=== PATIENT | female | born 1930 | race Caucasian/White ===

== ENCOUNTER 2019-07-06 20:49 | Inpatient (IN) ==
[2019-07-06] MEDS ORDERED: SODIUM CHLORIDE 0.9% 1,000 ML IV STA ×2 (21:40→22:21)
[2019-07-06 21:49] LABS: Basophils # 0.1 10*3/uL (0.0-0.2); Basophils % 0.5 % (0.0-0.8); Hematocrit 43.2 VOL% (35.7-47.0); Immature Granulocytes % 1.4 %; Immature Granulocytes Absolute 0.37 #; Lymphocytes # 2.3 10*3/uL (1.4-4.0); Lymphocytes % 8.6 % (21.3-54.2); Mean Corpuscular HGB Conc 32.4 GM/DL (32-36); Mean Corpuscular Volume 89.3 FL (87-102); Mean Platelet Volume 9.2 FL (9.6-12.0); Monocytes % 5.7 % (1.7-12.7); Neutrophils % 83.8 % (38.7-73.9); Platelet Count 291 T/CUMM (130-400); Red Blood Count 4.84 MC/CUMM (3.8-5.5); Red Cell Distribution Width 13.6 % (9.3-17.3); White Blood Count 26.6 T/CUMM (4-12)
[2019-07-06 22:05] LABS: INR 1.1; PT Patient Result 11.5 SECS (9.6-12.2)
[2019-07-06 22:07] LABS: Alanine Aminotransferase 50 U/L (13-56); Albumin 3.2 G/DL (3.4-5.0); Alkaline Phosphatase 65 U/L (45-117); Aspartate Amino Transferase 21 U/L (0-37); Blood Urea Nitrogen 16 MG/DL (7-18); Calcium 9.1 MG/DL (8.5-10.1); Estimated Glom Filtration Rate 52 ML/MIN; Glucose 143 MG/DL (74-106); Osmolality,Calculated 288.8 MOS/KG (273-304); Total Protein 6.7 G/DL (6.4-8.3)
[2019-07-06 22:23] LABS: Band Neutrophils 1 % (0-10); Lymphocytes 11 % (20-55); Platelet Estimate Adequate; Segmented Neutrophils 84 % (50-85); Total Cells Counted 100
[2019-07-06] MEDS ORDERED: LEVOFLOXACIN INJ 500 MG in PREMIX 1 EACH IV STA (22:24)
[2019-07-06 23:06] LABS: Apearance,Urine CLEAR (Clear); Bilirubin,Urine Negative (Negative); Blood, Urine Negative (Negative); Glucose,Urine (UA) Negative (Negative); Hyaline Casts,Urine 12 /LPF (0-3); Ketones,Urine Negative (Negative); Mucus,Urine Occasional /LPF (Occasional); Nitrite,Urine Negative (Negative); Protein,Urine Negative; RBC,Urine 2 /HPF (0-4); Squamous Epithelial Cell,Urine Occasional /HPF (0-10); Urine Color Yellow (Yellow); Urine Specific Gravity 1.014 (1.001-1.035); Urine Urobilinogen < 2.0 EU/DL (0.2-1.0); WBC,Urine 28 /HPF (0-6)
[2019-07-06] MEDS ORDERED: ACETAMINOPHEN 325 MG TABLET PO PRN (23:51)
[2019-07-07] MEDS: PIPERACILLIN/TAZOBACTAM 3,375 MG in SODIUM CHLORIDE 0.9% 100 ML IV SCH ×2 (02:31→09:21)
[2019-07-07] MEDS: SODIUM CHLORIDE 0.9% 1,000 ML IV SCH ×3 (02:31→14:50)
[2019-07-07 07:12] LABS: Basophils # 0.1 10*3/uL (0.0-0.2); Basophils % 0.2 % (0.0-0.8); Eosinophils % 0.1 % (0.00-10.9); Hematocrit 36.4 VOL% (35.7-47.0); Hemoglobin 11.8 GM/DL (12.0-16.0); Immature Granulocytes % 0.6 %; Immature Granulocytes Absolute 0.15 #; Lymphocytes # 3.3 10*3/uL (1.4-4.0); Lymphocytes % 14.2 % (21.3-54.2); Mean Corpuscular HGB Conc 32.4 GM/DL (32-36); Mean Corpuscular Volume 90.5 FL (87-102); Monocytes % 6.2 % (1.7-12.7); Neutrophils % 78.7 % (38.7-73.9); Platelet Count 237 T/CUMM (130-400); Red Blood Count 4.02 MC/CUMM (3.8-5.5); White Blood Count 23.4 T/CUMM (4-12)
[2019-07-07 07:25] LABS: Calcium 8.4 MG/DL (8.5-10.1); Osmolality,Calculated 293.1 MOS/KG (273-304)
[2019-07-07 07:37] LABS: Band Neutrophils 12 % (0-10); Lymphocytes 18 % (20-55); Platelet Estimate Normal; Segmented Neutrophils 62 % (50-85); Total Cells Counted 100
[2019-07-07 07:39] LABS: Macrocytosis Slight
[2019-07-07] MEDS ORDERED: NON-FORMULARY MEDICATION (Tiotropium Bromide [Spiriva Respimat] 2 PUFFS) INH SCH (10:45)
[2019-07-07] MEDS ORDERED: NON-FORMULARY MEDICATION (Lactobacillus Combination No.4 [Probiotic] 3,000 mmu cells) PO SCH (10:45)
[2019-07-07] MEDS ORDERED: LEVALBUTEROL 0.63 MG/3 ML NEB RESP TX SCH (11:00)
[2019-07-07] MEDS: ALBUTEROL/IPRATROPIUM 3 ML NEB RESP TX SCH ×3 (11:05→20:04)
[2019-07-07] MEDS ORDERED: METOPROLOL SUCCINATE XL 25 MG TABLET PO SCH (11:30)
[2019-07-07] MEDS ORDERED: amLODIPine 5 MG TABLET PO SCH (11:30)
[2019-07-07] MEDS: APIXABAN 5 MG TABLET PO SCH ×2 (11:48→20:33)
[2019-07-07] MEDS: FLUTICASONE/SALMETEROL 500-50 DISKUS 14 DOSE INH SCH ×2 (11:49→20:37)
[2019-07-07] MEDS: MONTELUKAST 10 MG TABLET PO SCH ×2 (11:49→20:33)
[2019-07-07] MEDS: POTASSIUM CHLORIDE 10 MEQ TABLET PO SCH (11:49)
[2019-07-07] MEDS: LACTOBACILLUS RHAMNOSUS GG CAPSULE PO SCH (11:49)
[2019-07-07] MEDS: COLESEVELAM 625 MG TABLET PO SCH (11:49)
[2019-07-07] MEDS: OSELTAMIVIR 75 MG CAPSULE PO SCH ×2 (14:49→20:34)
[2019-07-07] MEDS ORDERED: FUROSEMIDE 20 MG TABLET PO SCH (16:00)
[2019-07-07] MEDS: EZETIMIBE 10 MG TABLET PO SCH (20:33)
[2019-07-07] MEDS: MIRTAZAPINE 15 MG TABLET PO SCH (20:34)
[2019-07-07] MEDS: SIMVASTATIN 20 MG TABLET PO SCH (20:34)
[2019-07-07] MEDS ORDERED: LEVOFLOXACIN INJ 750 MG in PREMIX 1 EACH IV SCH (21:00)
[2019-07-08 05:42] LABS: Basophils # 0.1 10*3/uL (0.0-0.2); Basophils % 0.3 % (0.0-0.8); Eosinophils # 0.1 10*3/uL (0.0-0.87); Eosinophils % 0.6 % (0.00-10.9); Hematocrit 37.4 VOL% (35.7-47.0); Hemoglobin 11.7 GM/DL (12.0-16.0); Immature Granulocytes % 0.8 %; Immature Granulocytes Absolute 0.14 #; Lymphocytes # 2.4 10*3/uL (1.4-4.0); Lymphocytes % 14.2 % (21.3-54.2); Mean Corpuscular HGB Conc 31.3 GM/DL (32-36); Mean Corpuscular Volume 91.4 FL (87-102); Mean Platelet Volume 9.8 FL (9.6-12.0); Monocytes % 5.9 % (1.7-12.7); Neutrophils % 78.2 % (38.7-73.9); Platelet Count 215 T/CUMM (130-400); Red Blood Count 4.09 MC/CUMM (3.8-5.5); Red Cell Distribution Width 14.3 % (9.3-17.3); White Blood Count 17.2 T/CUMM (4-12)
[2019-07-08] MEDS: PANTOPRAZOLE 40 MG TABLET PO SCH (05:48)
[2019-07-08 06:06] LABS: Calcium 8.4 MG/DL (8.5-10.1); Osmolality,Calculated 286.7 MOS/KG (273-304)
[2019-07-08] MEDS: ALBUTEROL/IPRATROPIUM 3 ML NEB RESP TX SCH ×4 (06:58→19:30)
[2019-07-08] MEDS: FLUTICASONE/SALMETEROL 500-50 DISKUS 14 DOSE INH SCH ×2 (10:35→20:18)
[2019-07-08] MEDS: OSELTAMIVIR 75 MG CAPSULE PO SCH ×2 (10:36→20:06)
[2019-07-08] MEDS: APIXABAN 5 MG TABLET PO SCH ×2 (10:36→20:07)
[2019-07-08] MEDS: LACTOBACILLUS RHAMNOSUS GG CAPSULE PO SCH (10:36)
[2019-07-08] MEDS: POTASSIUM CHLORIDE 10 MEQ TABLET PO SCH (10:36)
[2019-07-08] MEDS: MONTELUKAST 10 MG TABLET PO SCH ×2 (10:36→20:06)
[2019-07-08] MEDS: COLESEVELAM 625 MG TABLET PO SCH (10:41)
[2019-07-08] MEDS: SODIUM CHLORIDE 0.9% 1,000 ML IV SCH (11:05)
[2019-07-08] MEDS: PIPERACILLIN/TAZOBACTAM 3,375 MG in SODIUM CHLORIDE 0.9% 100 ML IV SCH ×2 (12:12→20:04)
[2019-07-08] MEDS ORDERED: TUBERCULIN SKIN TEST 0.1 ML SYRINGE INTRADERM ONE (15:00)
[2019-07-08] MEDS: MIRTAZAPINE 15 MG TABLET PO SCH (20:06)
[2019-07-08] MEDS: EZETIMIBE 10 MG TABLET PO SCH (20:06)
[2019-07-08] MEDS: SIMVASTATIN 20 MG TABLET PO SCH (20:07)
[2019-07-09] MEDS: LEVOFLOXACIN INJ 500 MG in PREMIX 1 EACH IV SCH (00:37)
[2019-07-09] MEDS: PIPERACILLIN/TAZOBACTAM 3,375 MG in SODIUM CHLORIDE 0.9% 100 ML IV SCH ×3 (03:55→18:03)
[2019-07-09 05:27] LABS: Basophils % 0.3 % (0.0-0.8); Eosinophils # 0.2 10*3/uL (0.0-0.87); Eosinophils % 1.3 % (0.00-10.9); Hemoglobin 11.3 GM/DL (12.0-16.0); Immature Granulocytes % 0.5 %; Immature Granulocytes Absolute 0.06 #; Lymphocytes # 1.6 10*3/uL (1.4-4.0); Lymphocytes % 13.6 % (21.3-54.2); Mean Corpuscular HGB Conc 31.4 GM/DL (32-36); Mean Corpuscular Volume 92.3 FL (87-102); Mean Platelet Volume 9.6 FL (9.6-12.0); Neutrophils % 77.3 % (38.7-73.9); Platelet Count 229 T/CUMM (130-400); Red Cell Distribution Width 14.2 % (9.3-17.3); White Blood Count 11.8 T/CUMM (4-12)
[2019-07-09 05:47] LABS: Calcium 8.4 MG/DL (8.5-10.1); Osmolality,Calculated 285.8 MOS/KG (273-304)
[2019-07-09] MEDS: PANTOPRAZOLE 40 MG TABLET PO SCH (05:51)
[2019-07-09] MEDS: ALBUTEROL/IPRATROPIUM 3 ML NEB RESP TX SCH ×4 (08:05→19:24)
[2019-07-09] MEDS: MONTELUKAST 10 MG TABLET PO SCH ×2 (08:50→21:08)
[2019-07-09] MEDS: FLUTICASONE/SALMETEROL 500-50 DISKUS 14 DOSE INH SCH ×2 (08:51→21:10)
[2019-07-09] MEDS: POTASSIUM CHLORIDE 10 MEQ TABLET PO SCH (08:51)
[2019-07-09] MEDS: COLESEVELAM 625 MG TABLET PO SCH (08:51)
[2019-07-09] MEDS: LACTOBACILLUS RHAMNOSUS GG CAPSULE PO SCH (08:51)
[2019-07-09] MEDS: APIXABAN 5 MG TABLET PO SCH ×2 (08:51→21:10)
[2019-07-09] MEDS: OSELTAMIVIR 75 MG CAPSULE PO SCH ×2 (08:51→21:10)
[2019-07-09] MEDS: METOPROLOL SUCCINATE XL 25 MG TABLET PO SCH (10:25)
[2019-07-09] MEDS: SODIUM CHLORIDE 0.9% 1,000 ML IV SCH (17:32)
[2019-07-09] MEDS: EZETIMIBE 10 MG TABLET PO SCH (21:09)
[2019-07-09] MEDS: SIMVASTATIN 20 MG TABLET PO SCH (21:10)
[2019-07-09] MEDS: MIRTAZAPINE 15 MG TABLET PO SCH (21:10)
[2019-07-10] MEDS: LEVOFLOXACIN INJ 500 MG in PREMIX 1 EACH IV SCH (00:18)
[2019-07-10] MEDS: PIPERACILLIN/TAZOBACTAM 3,375 MG in SODIUM CHLORIDE 0.9% 100 ML IV SCH ×2 (03:36→10:01)
[2019-07-10] MEDS: SODIUM CHLORIDE 0.9% 1,000 ML IV SCH (03:36)
[2019-07-10] MEDS: PANTOPRAZOLE 40 MG TABLET PO SCH (05:37)
[2019-07-10 05:47] LABS: Basophils # 0.1 10*3/uL (0.0-0.2); Basophils % 0.6 % (0.0-0.8); Eosinophils # 0.3 10*3/uL (0.0-0.87); Hematocrit 36.7 VOL% (35.7-47.0); Hemoglobin 11.3 GM/DL (12.0-16.0); Immature Granulocytes % 0.5 %; Immature Granulocytes Absolute 0.04 #; Lymphocytes # 1.7 10*3/uL (1.4-4.0); Lymphocytes % 19.3 % (21.3-54.2); Mean Corpuscular HGB Conc 30.8 GM/DL (32-36); Mean Corpuscular Volume 93.6 FL (87-102); Mean Platelet Volume 9.3 FL (9.6-12.0); Monocytes % 10.3 % (1.7-12.7); Neutrophils % 66.3 % (38.7-73.9); Platelet Count 235 T/CUMM (130-400); Red Blood Count 3.92 MC/CUMM (3.8-5.5); Red Cell Distribution Width 14.2 % (9.3-17.3); White Blood Count 8.7 T/CUMM (4-12)
[2019-07-10 06:13] LABS: Calcium 8.9 MG/DL (8.5-10.1); Osmolality,Calculated 290.4 MOS/KG (273-304)
[2019-07-10] MEDS: ALBUTEROL/IPRATROPIUM 3 ML NEB RESP TX SCH ×2 (07:11→11:32)
[2019-07-10 08:10] VITALS: BP 131/63
[2019-07-10] MEDS: APIXABAN 5 MG TABLET PO SCH (08:46)
[2019-07-10] MEDS: LACTOBACILLUS RHAMNOSUS GG CAPSULE PO SCH (08:46)
[2019-07-10] MEDS: OSELTAMIVIR 75 MG CAPSULE PO SCH (08:46)
[2019-07-10] MEDS: METOPROLOL SUCCINATE XL 25 MG TABLET PO SCH (08:46)
[2019-07-10] MEDS: POTASSIUM CHLORIDE 10 MEQ TABLET PO SCH (08:46)
[2019-07-10] MEDS: MONTELUKAST 10 MG TABLET PO SCH (08:46)
[2019-07-10] MEDS: COLESEVELAM 625 MG TABLET PO SCH (08:47)
[2019-07-10] MEDS: FLUTICASONE/SALMETEROL 500-50 DISKUS 14 DOSE INH SCH (08:47)
== END 2019-07-10 12:46 | DRG 194 ==
LOC: N.ED 20:49 → N.EDINP 23:51 → N.2E 07-07 01:40
PROVIDERS: ADMIT Internal Medicine; ATTEND Internal Medicine